=== PATIENT | female | born 1980 | race Caucasian/White ===

== ENCOUNTER 2024-04-07 05:10 | Day surgery (SDC) | payer OTHER ==
[~2024-04-07] VITALS: Ht 162.6 cm; Wt 74.8 kg
[2024-04-07] MEDS ORDERED: CHLORHEXIDINE GLUCONATE 120 ML BOTTLE TOP ONE (10:45)
[2024-04-07] MEDS ORDERED: POVIDONE-IODINE 118 ML BOTT TOP ONE (10:45)
[2024-04-07] MEDS ORDERED: ONDANSETRON HCL 2 MG/ML VIAL IV ONE (11:00)
[2024-04-07] MEDS ORDERED: KETOROLAC TROMETHAMINE 30 MG VIAL IV ONE (11:00)
== END 2024-04-07 15:50 | disposition home or self-care (01) ==
LOC: CIR.AMB 05:10
PROVIDERS: ATTEND Obstetrics & Gynecology
DX: N84.0 Polyp of corpus uteri (principal); N93.8 Other specified abnormal uterine and vaginal bleeding; F41.9 Anxiety disorder, unspecified; J40 Bronchitis, not specified as acute or chronic